=== PATIENT | female | born 1945 | race African-American/Black ===

== ENCOUNTER 2017-05-15 08:27 | Emergency (ER) | payer MEDICARE, OTHER ==
--- NOTE | 2017-05-15 09:47 | PHYS DOC ---
Adult General Chief Complaint Chief Complaint: CPR/FULL ARREST HPI HPI History of present illness: 72-year-old female with reported history of end- stage renal disease on dialysis coming in by EMS as a CODE BLUE found down at local residential facility. EMS reports last known witnessed time was around 8: 00 last night. Today one of the residential staff noticed the patient unresponsive and initiated coating the patient immediately. On arrival by EMS the patient is in asystole and has been undergoing CPR for 20 minutes. They report the patient was found in a pool of blood at the residential facility. They placed a tourniquet on the patient's left arm and brought the patient and after administering epinephrine per ACLS. Onset today. Location heart and lungs. Duration constant. No alleviating factors. Unfortunately because of the patient's medical condition no further review of systems past medical history surgical history social history her allergy list is available this time. Past medical history dialysis/end-stage renal disease Past surgical history unknown Social history unknown. Allergies unknown. Physical exam: Constitutional: The patient is unresponsive HEENT: The patient has dilated pupils that are nonresponsive normal conjunctiva , neck is supple, no evidence of JVD. Lungs: Breath sounds bilaterally with bagging Cardiac: No pulses detectable no heart sounds detected. Abdomen is soft nondistended nontender palpation skin: mottled. Neuro: no response. Extremities: No edema, tourniquet on the left arm placed by EMS prior to arrival. No pulsatile palpation without chest compressions Back: Atraumatic Psych: Does not make eye contact. ED course: 72-year-old female presenting to the emergency department undergoing CPR. Poor prognostic indicators asystole in the field, unknown downtime, multiple comorbidities. On arrival the [facility] and CPR was continued. Initial pulse check showed the patient to be in ventricular fib. Patient was shocked twice however the patient degenerated into asystole. Patient was given bicarbonate and calcium gluconate and intubated in the emergency department. Unfortunately our resuscitation efforts were unsuccessful and the patient was called time of at 841. EKG EKG [] Radiology/Procedures Radiology/Procedures [] Course & Med Decision Making Course & Med Decision Making Pertinent Labs and Imaging studies reviewed. (See chart for details) [] Dragon Disclaimer Dragon Disclaimer This electronic medical record was generated, in whole or in part, using a voice recognition dictation system. Departure Departure Impression: Primary Impression: Cardiopulmonary arrest Disposition: 20 Condition: Referrals: GREG JIM (PCP) Intubation Procedure Intubation Procedure Intub Indication: Respiratory failure Consent: Unable to give consent due to emergent nature. Medications Used: see nursing note Procedure: The patient was placed in the appropriate position. Intubation was performed using direct visualization with a 7.5 endotracheal tube. secured at 24 at the teeth. Initial confirmation of placement included bilateral breath sounds, tube fogging, adequate chest rise. No epigastric sounds with bagging. The patient tolerated the procedure well. Complications: none. Critical Care Time Critical care time was 40 minutes exclusive of procedures. Time was spent evaluating the patient, ordering the administration of medications, directing the care of EMS prior to arrival, and documenting. PURVI BILLY MD May 15, 2017 09:47
[2017-05-15] MEDS ORDERED: EPINEPHrine SYRINGE 1 MG/10 ML SYRINGE ONE (10:00)
[2017-05-15] MEDS ORDERED: SODIUM BICARB ADULT 8.4% 50 MEQ/50 ML DISP.SYRIN. ONE (10:00)
[2017-05-15] MEDS ORDERED: CALCIUM CHLORIDE 1,000 MG/10 ML DISP.SYRIN IV ONE (10:00)
== END 2017-05-15 12:20 | disposition expired ==
LOC: ER 08:27
DX: I46.9 Cardiac arrest, cause unspecified (principal); N18.6 End stage renal disease; Z99.2 Dependence on renal dialysis
CPT/HCPCS: 31500; 92950; 99291; J0171; J3490